=== PATIENT | female | born 1980 | race Asian ===

== ENCOUNTER 2025-03-19 09:33 | Emergency (ER) | payer BC ==
[~2025-03-19] VITALS: Ht 160 cm; Wt 71.7 kg
[2025-03-19 10:00] VITALS: TEMP 98
[2025-03-19] MEDS ORDERED: ACETAMINOPHEN ES 500 MG TABLET ONE (10:01)
[2025-03-19] MEDS: ACETAMINOPHEN 325 MG TABLET PO ONE (10:08)
[2025-03-19 10:21] LABS: PREGNANCY TEST URINE QUAL NEGATIVE (NEGATIVE)
[2025-03-19] MEDS ORDERED: METHOCARBAMOL (500MG) 500 MG TABLET ONE (11:01)
[2025-03-19] MEDS ORDERED: KETOROLAC TROMETHAMINE INJ 30 MG/ML VIAL ONE (11:01)
[2025-03-19] MEDS ORDERED: LIDOCAINE 5% (PATCH) 1 EA PATCH TP ONE (11:01)
[2025-03-19] MEDS: METHOCARBAMOL (750MG) 750 MG TABLET PO ONE (11:10)
[2025-03-19] MEDS: LIDOCAINE 5% (PATCH) 1 EA PATCH TP ONE (11:10)
[2025-03-19] MEDS: KETOROLAC TROMETHAMINE INJ 30 MG/ML VIAL IM ONE (11:11)
[2025-03-19] MEDS ORDERED: METH-649 PO (11:41)
[2025-03-19] MEDS ORDERED: IBUP-1955 PO (11:41)
[2025-03-19 13:11] VITALS: BP 154/84; O2SAT 98
== END 2025-03-19 13:00 | disposition home or self-care (01) ==
LOC: EDSEX 09:33 → ER 09:33
DX: M25.511 Pain in right shoulder (principal); M54.2 Cervicalgia; I10 Essential (primary) hypertension
CPT/HCPCS: 99284; 96372; 73030; 84703 ×2; J1885